=== PATIENT | female | born 1975 | race American Indian/Alaskan Native ===

== ENCOUNTER 2017-03-16 09:40 | Emergency (ER) | payer SELFPAY ==
[2017-03-16] MEDS ORDERED: ARTIFICIAL TEARS OPHTH OINT OU PRN (09:46)
[2017-03-16] MEDS ORDERED: VASELINE LIP THERAPY TP PRN ×2 (09:46→10:34)
[2017-03-16] MEDS ORDERED: NACL 0.9% 1000 ML 1,000 ML IV ONE ×2 (09:50→10:16)
--- NOTE | 2017-03-16 09:51 | Emergency Department Report ---
ED General Adult HPI - General Stated complaint: POST CARDIAC ARREST Time Seen by Provider: 03/16/17 09:45 Source: EMS - History of Present Illness Initial comments: Patient comes in post cardiac arrest. Patient had a ache and then a seizure per EMS. Patient then became unresponsive and then started foaming at the mouth. When EMS arrived they intubated her her pupils are fixed and dilated. The also did CPR for about 6 minutes. Patient on 2 rounds of epi on EMS and 1 mg of Narcan patient then had return of spontaneous circulation. Other history is limited due to acuity of patient's condition. No significant family history per . No significant past medical history per . - Related Data Allergies Allergy/AdvReac Type Severity Reaction Status Date / Time Unable to Assess Allergy Unverified 03/16/17 09:46 ED Review of Systems ROS: Stated complaint: POST CARDIAC ARREST Other details as noted in HPI Comment: Unobtainable due to pts medical conditions ED Physical Exam - General Limitations: Other (general unresponsive) General appearance: other (GCS of 3T) - Head Head exam: Present: atraumatic, normocephalic - Eye Eye exam: Present: other (pupils fixed and dilated 5mm and unresponsive to light ) - ENT ENT exam: Present: normal exam - Cardiovascular Cardiovascular Exam: Present: other (tachycardia) - Extremities Exam Extremities exam: Present: other (patient does not withdraw extremities to pain) - Back Exam Back exam: Present: normal inspection - Neurological Exam Neurological exam: Present: other (GCS of 3) - Psychiatric Psychiatric exam: Present: other (GCS of 3) ED Course Vital Signs 03/16/17 03/16/17 03/16/17 09:40 09:46 09:50 Pulse Rate 123 H 122 H 121 H Respiratory 9 L 16 16 Rate Blood Pressure 120/78 120/78 O2 Sat by Pulse 100 99 Oximetry 03/16/17 03/16/17 03/16/17 09:56 10:14 10:18 Pulse Rate 118 H Respiratory 18 18 18 Rate Blood Pressure 78/46 78/46 O2 Sat by Pulse 100 100 100 Oximetry 03/16/17 03/16/17 03/16/17 10:30 10:34 10:35 Pulse Rate 103 H 105 H Respiratory 18 18 Rate Blood Pressure 58/30 65/33 65/33 O2 Sat by Pulse 99 100 100 Oximetry 03/16/17 03/16/17 03/16/17 10:45 11:00 11:15 Pulse Rate 106 H 109 H 105 H Respiratory 18 18 18 Rate Blood Pressure 81/45 100/60 98/60 O2 Sat by Pulse 100 99 98 Oximetry 03/16/17 03/16/17 03/16/17 11:30 11:45 12:00 Pulse Rate 110 H 102 H 102 H Respiratory 18 18 18 Rate Blood Pressure 129/94 104/73 115/85 O2 Sat by Pulse 100 100 100 Oximetry 03/16/17 03/16/17 03/16/17 12:15 12:30 12:45 Pulse Rate 102 H 104 H 101 H Respiratory 18 18 18 Rate Blood Pressure 127/96 133/103 125/92 O2 Sat by Pulse 100 100 100 Oximetry 03/16/17 13:00 Pulse Rate 102 H Respiratory 18 Rate Blood Pressure 127/97 O2 Sat by Pulse 100 Oximetry - Reevaluation(s) Reevaluation #1: 03/16/17 12:08 Patient is hypotensive I will place central line in and start patient on 5 mics of norepinephrine Reevaluation #2: 03/16/17 13:09 Reevaluate patient discussed the patient's and patient will be transferred to [facility] [place] he agrees to plan. He has no other medical questions at this time. Reevaluation #3: 03/16/17 13:21 Signed transfer form for patient patient is still unresponsive and not requiring any sedation. Patient will be transferred to [facility]. - Consultations Consultation #1: 03/16/17 12:[address] hTomas discussed that patient has a subdural hematoma and that we will need to transfer the patient to [facility] due to [facility] not having a neurosurgeon cork insulation installer. 03/16/17 13:02 Consultation #2: 03/16/17 13:[address] Huffman Neuro Intesivist about the patient's status it was at least 15 minutes before EMS arrived and intubated the patient. Patient's pupils were fixed and dilated to EMS and they are fixed and dilated on my exam - Central Line Placement Right IJ Consent Obtained: emergent situation Time Out Performed: Yes Patient Placed on Monitor/Pulse Ox: Yes MD Prep: mask, gown, gloves Central Line Prep: Chlorhexidine scrub Ultrasound Used for Placement: Yes Central Line Lumen Inserted: triple Bloods Obtained for Lab: Yes Central Line Position: good blood return, all ports aspirated, flus, sutured in place with 3-0 Dressing Applied: Tegaderm, other Post Procedure X-Ray: tip of catheter in good p Patient Tolerated Procedure: well Complications: none ED Medical Decision Making - Lab Data Result diagrams: 03/16/17 10:23 03/16/17 10:23 Lab Results 03/16/17 03/16/17 03/16/17 Range/Units 10:05 10:05 10:23 WBC 6.9 (4.5-11.0) K/mm3 RBC 3.97 (3.65-5.03) M/mm3 Hgb 10.9 (10.1-14.3) gm/dl Hct 35.9 (30.3-42.9) % MCV 90 (79-97) fl MCH 27 L (28-32) pg MCHC 30 (30-34) % RDW 13.2 (13.2-15.2) % Plt Count 114 L (140-440) K/mm3 Lymph % (Auto) 18.5 (13.4-35.0) % [place] % (Auto) 1.1 (0.0-7.3) % Eos % (Auto) 1.6 (0.0-4.3) % Baso % (Auto) 0.4 (0.0-1.8) % Lymph # 1.3 (1.2-5.4) K/mm3 [place] # 0.1 (0.0-0.8) K/mm3 Eos # 0.1 (0.0-0.4) K/mm3 Baso # 0.0 (0.0-0.1) K/mm3 Seg Neutrophils % 78.4 H (40.0-70.0) % Seg Neutrophils # 5.4 (1.8-7.7) K/mm3 POC ABG pH (7.35-7.45) POC ABG pCO2 (35-45) POC ABG pO2 (80-105) POC ABG HCO3 POC ABG Total CO2 POC ABG O2 Sat POC ABG Base Excess FiO2 % Sodium (137-145) mmol/L Potassium (3.6-5.0) mmol/L Chloride (98-107) mmol/L Carbon Dioxide (22-30) mmol/L Anion Gap mmol/L BUN (7-17) mg/dL Creatinine (0.7-1.2) mg/dL Estimated GFR ml/min BUN/Creatinine Ratio % Glucose (65-100) mg/dL Calcium (8.4-10.2) mg/dL Total Bilirubin (0.1-1.2) mg/dL AST (5-40) units/L ALT (7-56) units/L Alkaline Phosphatase (35-129) units/L Troponin T (0.00-0.029) ng/mL Total Protein (6.3-8.2) g/dL Albumin (3.9-5) g/dL Albumin/Globulin Ratio % Triglycerides (2-149) mg/dL Cholesterol (50-199) mg/dL LDL Cholesterol Direct (50-130) mg/dL HDL Cholesterol (40-59) mg/dL Cholesterol/HDL Ratio % Urine Color Yellow (Yellow) Urine Turbidity Clear (Clear) Urine pH 5.0 (5.0-7.0) Ur Specific [place] 1.021 (1.003-1.030) Urine Protein <15 mg/dl (Negative) mg/dL Urine Glucose (UA) Neg (Negative) mg/dL Urine Ketones Neg (Negative) mg/dL Urine Blood Sm (Negative) Urine Nitrite Neg (Negative) Urine Bilirubin Neg (Negative) Urine Urobilinogen < 2.0 (<2.0) mg/dL Ur Leukocyte Esterase Neg (Negative) Urine WBC (Auto) < 1.0 (0.0-6.0) /HPF Urine RBC (Auto) 1.0 (0.0-6.0) /HPF U Epithel Cells (Auto) 1.0 (0-13.0) /HPF Urine Mucus 1+ /HPF Drugs of Abuse Note Disclamer 03/16/17 03/16/17 Range/Units 10:23 10:27 WBC (4.5-11.0) K/mm3 RBC (3.65-5.03) M/mm3 Hgb (10.1-14.3) gm/dl Hct (30.3-42.9) % MCV (79-97) fl MCH (28-32) pg MCHC (30-34) % RDW (13.2-15.2) % Plt Count (140-440) K/mm3 Lymph % (Auto) (13.4-35.0) % [place] % (Auto) (0.0-7.3) % Eos % (Auto) (0.0-4.3) % Baso % (Auto) (0.0-1.8) % Lymph # (1.2-5.4) K/mm3 [place] # (0.0-0.8) K/mm3 Eos # (0.0-0.4) K/mm3 Baso # (0.0-0.1) K/mm3 Seg Neutrophils % (40.0-70.0) % Seg Neutrophils # (1.8-7.7) K/mm3 POC ABG pH 7.196 L (7.35-7.45) POC ABG pCO2 37.9 (35-45) POC ABG pO2 319 H (80-105) POC ABG HCO3 14.7 POC ABG Total CO2 16 POC ABG O2 Sat 100 POC ABG Base Excess -13 FiO2 100 % Sodium 140 (137-145) mmol/L Potassium 3.3 L (3.6-5.0) mmol/L Chloride 105.2 (98-107) mmol/L Carbon Dioxide 12 L (22-30) mmol/L Anion Gap 26 mmol/L BUN 13 (7-17) mg/dL Creatinine 1.1 (0.7-1.2) mg/dL Estimated GFR > 60 ml/min BUN/Creatinine Ratio 11.81 % Glucose 199 H (65-100) mg/dL Calcium 7.3 L (8.4-10.2) mg/dL Total Bilirubin 0.30 (0.1-1.2) mg/dL AST 235 H (5-40) units/L ALT 295 H (7-56) units/L Alkaline Phosphatase 38 (35-129) units/L Troponin T 0.129 H* (0.00-0.029) ng/mL Total Protein 4.8 L (6.3-8.2) g/dL Albumin 2.7 L (3.9-5) g/dL Albumin/Globulin Ratio 1.3 % Triglycerides 41 (2-149) mg/dL Cholesterol 145 (50-199) mg/dL LDL Cholesterol Direct 109 (50-130) mg/dL HDL Cholesterol 35 L (40-59) mg/dL Cholesterol/HDL Ratio 4.14 % Urine Color (Yellow) Urine Turbidity (Clear) Urine pH (5.0-7.0) Ur Specific [place] (1.003-1.030) Urine Protein (Negative) mg/dL Urine Glucose (UA) (Negative) mg/dL Urine Ketones (Negative) mg/dL Urine Blood (Negative) Urine Nitrite (Negative) Urine Bilirubin (Negative) Urine Urobilinogen (<2.0) mg/dL Ur Leukocyte Esterase (Negative) Urine WBC (Auto) (0.0-6.0) /HPF Urine RBC (Auto) (0.0-6.0) /HPF U Epithel Cells (Auto) (0-13.0) /HPF Urine Mucus /HPF Drugs of Abuse Note - EKG Data -: EKG Interpreted by Me - EKG Data 03/16/17 12:37 EKG shows sinus tachycardia rightward axis ST and T-wave abnormality in leads 2 , 3 and aVF - Radiology Data Radiology results: image reviewed CT scan shows subdural hematoma with some midline shift. - Medical Decision Making Chief medical diagnosis: Subdural hematoma Differential medical diagnosis: Non-STEMI, subarachnoid hemorrhage We'll get CT scan of head, chest x-ray, central line, CBC, CMP Patient is hypotensive and will require IV norepinephrine. Patient's CT shows subdural hematoma she has a life-threatening condition. Patient's pupils are fixed and dilated discussed with neuro pc tech and neuro critical care physician at [place]. Patient has life-threatening condition and will need to be transferred. Critical Care Time: Yes Critical care time in (mins) excluding proc time.: 80 Critical care attestation.: If time is entered above; I have spent that time in minutes in the direct care of this critically ill patient, excluding procedure time. Time spent at patient's bedside 50 minutes Time spent with patient's family 10 minutes Time spent with consulting services 15 minutes time Time spent reviewing laboratory findings 5 minutes Total time of critical care 80 minutes ED Disposition Clinical Impression: Subdural hematoma, Encephalopathy acute, Elevated troponin, Shock Respiratory failure Qualifiers: Chronicity: acute Respiratory failure complication: hypoxia Qualified Code(s): J96.01 - Acute respiratory failure with hypoxia Disposition: DC/TX-70 ANOTHER TYPE HLTHCARE Is pt being admited?: No Does the pt Need Aspirin: No Condition: Stable Referrals: PRIMARY CARE,MD [Primary Care Provider] - 3-5 Days
[2017-03-16] MEDS ORDERED: NACL 0.9% 1000 ML 1,000 ML ONE (09:56)
[2017-03-16] MEDS ORDERED: MIDAZOLAM 100 MG in NACL 0.9% 80 ML IV SCH (10:00)
[2017-03-16] MEDS ORDERED: fentaNYL DRIP Premix 2,000 MCG/100 ML BAG IV SCH (10:00)
[2017-03-16 10:11] LABS: Bilirubin,Urine NEG (Negative); Blood,Urine SM (Negative); Ketones,Urine NEG (Negative); Leukocyte Esterase,Urine NEG (Negative); Mucus,Urine 1+ /HPF; Nitrite,Urine NEG (Negative); Protein,Urine <15 mg/dL mg/dL (Negative); Urobilinogen,Urine < 2.0 mg/dL (<2.0); WBC,Urine < 1.0 /HPF (0.0-6.0)
[2017-03-16] MEDS ORDERED: LEVOPHED DRIP 4 MG/NS 250 ML 4 MG/250 ML BAG IV SCH (10:30)
[2017-03-16] MEDS ORDERED: LEVOPHED DRIP 4 MG/NS 250 ML 4 MG/250 ML BAG IV ONE (10:35)
[2017-03-16 10:53] LABS: Basophils % (Auto) 0.4 % (0.0-1.8); Eosinophils % (Auto) 1.6 % (0.0-4.3); Mean Corpuscular HGB Conc 30 % (30-34); Mean Corpuscular Hemoglobin 27 pg (28-32); Mean Corpuscular Volume 90 fl (79-97); Platelet Count 114 K/mm3 (140-440); Red Blood Count 3.97 M/mm3 (3.65-5.03); Red Cell Distribution Width 13.2 % (13.2-15.2); White Blood Count 6.9 K/mm3 (4.5-11.0)
[2017-03-16 10:57] LABS: Hematocrit 35.9 % (30.3-42.9); Hemoglobin 10.9 gm/dl (10.1-14.3)
[2017-03-16 11:02] LABS: Alanine Aminotransferase 295 units/L (7-56); Albumin 2.7 g/dL (3.9-5); Albumin/Globulin Ratio 1.3 %; Alkaline Phosphatase 38 units/L (35-129); Anion Gap 26 mmol/L; BUN/Creatinine Ratio 11.81; Blood Urea Nitrogen 13 mg/dL (7-17); Calcium 7.3 mg/dL (8.4-10.2); Carbon Dioxide 12 mmol/L (22-30); Chloride 105.2 mmol/L (98-107); Glucose 199 mg/dL (65-100); Potassium 3.3 mmol/L (3.6-5.0); Sodium 140 mmol/L (137-145); Total Protein 4.8 g/dL (6.3-8.2)
[2017-03-16 11:20] LABS: Cholesterol 145 mg/dL (50-199); HDL Cholesterol 35 mg/dL (40-59)
[2017-03-16 11:28] LABS: ISTAT Base Excess -13; ISTAT HCO3 14.7; ISTAT PCO2 37.9 (35-45); ISTAT PH 7.196 (7.35-7.45); ISTAT PO2 319 (80-105); ISTAT SO2 100; ISTAT TCO2 16
[2017-03-16 11:35] LABS: LDL Cholesterol,Direct 109 mg/dL (50-130); Triglycerides 41 mg/dL (2-149)
[2017-03-16] MEDS ORDERED: KEPPRA 1,000 MG in D5W 100 ML IV ONE (12:08)
[2017-03-16 12:34] LABS: Urine Drugs of Abuse Note Disclamer
[2017-03-16] MEDS ORDERED: KEPPRA 1,000 MG/NS 0.75% 100ML 1,000 MG/100 ML BAG IV ONE (13:00)
[2017-03-16 13:52] LABS: INR 1.31 (0.87-1.13)
[2017-03-16 13:53] LABS: Partial Thromboplastin Time 35.1 Sec. (24.2-36.6)
[2017-03-16 14:17] LABS: INR 1.36 (0.87-1.13)
[2017-03-16 14:18] LABS: Partial Thromboplastin Time 35.8 Sec. (24.2-36.6)
[2017-03-16 14:29] VITALS: BP 104/80
--- NOTE | 2017-03-16 15:30 | XRay Report ---
Portable chest: Tube placement. An endotracheal tube tip is located at the level of the mid clavicle. The lungs are clear and the mediastinal contour is unremarkable. There is a resuscitation paddles over the right chest. No prior study for comparison.
--- NOTE | 2017-03-16 15:30 | Cat Scan Report ---
CT scan of head without contrast: History: Post cardiac arrest. Findings: There is left parietal convexity acute subdural hematoma. Maximum thickness 9 mm. Approximate midline shift to the right of 1 cm. Hemorrhage is also noted along the tentorium and interhemispheric fissure. fissure. No evidence of subarachnoid hemorrhage or intraparenchymal hemorrhage. No intraventricular hemorrhage. No evidence of acute ischemia. Impression: Findings as detailed above. Dr. Jacobson was informed of the findings at 11:15 AM on 03/16/17.
--- NOTE | 2017-03-16 15:30 | XRay Report ---
Portable supine chest: Central line location. A right jugular central venous line has been inserted with the tip in the right atrium. The findings otherwise appear unchanged from the prior study of 10:30 AM. The endotracheal tube remains in good position and the lungs are clear.
== END 2017-03-16 14:34 | disposition other institution (70) ==
LOC: ED 09:40
DX: S06.5X0A Traumatic subdural hemorrhage without loss of consciousness, initial encounter (principal); G93.40 Encephalopathy, unspecified; R57.9 Shock, unspecified; J96.90 Respiratory failure, unspecified, unspecified whether with hypoxia or hypercapnia; X58.XXXA Exposure to other specified factors, initial encounter; Y93.89 Activity, other specified; Y92.89 Other specified places as the place of occurrence of the external cause; Y99.8 Other external cause status
CPT/HCPCS: 36415; 36556; 51702; 70450; 71010; 80053; 80061; 80307; 81001; 82803; 84484; 85025; 85610; 85730; 87070; 87205; 93005; 93010; 94002; 96361; 96365; 96375; 99291; 99292; J1953; J2250; J3010; J7030